=== PATIENT | female | born 1990 | race Caucasian/White ===

== ENCOUNTER 2017-10-22 11:20 | Emergency (ER) | payer MEDICAID ==
[~2017-10-22] VITALS: Ht 162.6 cm; Wt 61.7 kg
[2017-10-22 11:25] VITALS: BP 123/81
--- NOTE | 2017-10-22 11:25 | NUR ---
pt ambulated to rm 10 with steady
--- NOTE | 2017-10-22 11:40 | NUR ---
27F BIB SELF WITH C/O FREQUENCY X 8 DAYS; PT STS SHE NOTED BROWNISH VAG DISCHARGE YESTERDAY BUT DENIES ANY VAGINAL DISCHARGE TODAY, FEVERS, N/V, OR PAIN. PT SEEN AT ANOTHER ER FOR SAME COMPLAINT AND WAS SENT HOME ON 10/14/17 WITH RX MACROBID, PYRIDIUM THEN CHANGED TO KEFLEX 10/19/2017; PT DENIES URGENCY DENIE HESISTANCY, DENIES PAIN UPON VOIDING; PT IS AOX4 TO PERSON, PLACE, SITUATION, AND TIME. RR ARE EVEN AND UNLABORED. PT POSITIONED TO COMFORT. ALL NEEDS MET AT THIS TIME. WILL CONTINUE TO MONITOR.
--- NOTE | 2017-10-22 12:54 | NUR ---
US BY BEDSIDE
[2017-10-22 13:34] LABS: APPEARANCE,URINE HAZY (CLEAR); BILIRUBIN,URINE NEGATIVE (NEGATIVE); BLOOD, URINE 1+ (NEGATIVE); COLOR,URINE YELLOW (YELLOW); LEUKOCYTE ESTERASE ,URINE 1+ (NEGATIVE); NITRITE, URINE NEGATIVE (NEGATIVE); UGLUCOSE NEGATIVE (NEGATIVE)
[2017-10-22 13:58] LABS: RBC,URINE 3-10 (FEW) /HPF (0-5)
[2017-10-22] MEDS ORDERED: cefTRIAXone 1,000 MG in LIDOCAINE MPF 1% - 5 mL VIAL 2.1 ML IM ONE (14:00)
[2017-10-22 14:29] VITALS: BP 123/81
--- NOTE | 2017-10-22 14:30 | NUR ---
Patient discharged with v/s stable. Written and verbal after care instructions given and explained. Patient verbalized understanding. Ambulatory with steady gait. All questions addressed prior to discharge. Advised to follow up with PMD.
== END 2017-10-22 14:30 | disposition home or self-care (01) ==
LOC: MED 11:20
DX: N39.0 Urinary tract infection, site not specified (principal); N32.89 Other specified disorders of bladder; E78.5 Hyperlipidemia, unspecified; Z86.73 Personal history of transient ischemic attack (TIA), and cerebral infarction without residual deficits
CPT/HCPCS: 76770; 76856; 81001; 81025; 82948; 87086; 96372; 99285; J0696; J2001; Q0092